=== PATIENT | male | born 1975 ===

== ENCOUNTER 2019-07-28 10:45 | Outpatient (CLI) | payer OTHER, SELFPAY ==
[2019-07-28 10:58] LABS: Basophils Absolute Auto 0.02 K/mm3 (0.00-0.10); Basophils Percent Auto 0.4 % (0.0-1.0); Hematocrit 45.9 % (40.0-54.0); Hemoglobin 16.1 g/dL (14.0-18.0); Immature Granulocyte Absolute 0.01 K/mm3 (0.00-0.00); Immature Granulocyte Percent A 0.2 % (0.0-0.0); Immature Platelet Fraction Pct 2.7 % (1.0-7.0); Lymphocytes Absolute Auto 0.57 K/mm3 (1.10-4.50); Lymphocytes Percent Auto 11.9 % (18.0-42.0); Mean Corpuscular HGB Conc 35.1 g/dL (32.0-36.0); Mean Corpuscular Hemoglobin 31.6 pg (27.0-31.0); Mean Platelet Volume 10.1 fl (8.7-11.0); Monocytes Absolute Auto 0.34 K/mm3 (0.10-0.90); Monocytes Percent Auto 7.1 % (2.0-11.0); Neutrophils Absolute Auto 3.8 K/mm3 (1.7-7.2); Neutrophils Percent Auto 80.4 % (50.0-70.0); Platelet Count Result 154 K/mm3 (150-420); Red Cell Distribution Width 11.8 % (11.6-14.4); White Blood Count 4.8 K/mm3 (4.8-10.8)
[2019-07-28 11:56] LABS: Alanine Aminotransferase 178 U/L (16-63); Albumin Level 3.9 g/dL (3.4-5.0); Alkaline Phosphatase 109 U/L (46-116); Anion Gap 11.8 mmol/L (7-16); Aspartate Amino Transferase 128 U/L (15-37); Bilirubin,Total 0.6 mg/dL (0.00-1.00); Blood Urea Nitrogen 8 mg/dL (7-18); Calcium 8.7 mg/dL (8.5-10.1); Carbon Dioxide 31 mmol/L (21-32); Chloride 98 mmol/L (98-108); Estimated Glomerular Filt Rate > 60; Glucose 110 mg/dL (70-99); Osmolality Calculated 283 mOsm/kg (285-295); Potassium 3.8 mmol/L (3.5-5.1); Sodium 137 mmol/L (136-145); Total Protein 7.3 g/dL (6.4-8.2)
== END 2019-07-28 10:46 | disposition home or self-care (01) ==
PROVIDERS: PCP Nurse Practitioner Family; Visit Provider Nurse Practitioner Family
DX: E86.0 Dehydration (principal); R73.09 Other abnormal glucose
CPT/HCPCS: 36415; 80053; 85025; 85055

== ENCOUNTER 2019-07-29 08:10 | Outpatient (CLI) | payer OTHER, SELFPAY ==
--- NOTE | ~2019-07-29 | US_ITS ---
US right upper quadrant INDICATION: Abnormal level of serum enzymes. PROCEDURE: Realtime right upper abdominal ultrasound. COMPARISON: No prior studies for comparison. FINDINGS: The pancreas is normal without focal mass or pancreatic ductal dilation. Liver echotexture is normal without focal mass or intrahepatic biliary dilatation. There is normal directional flow i n the portal vein. The gallbladder is normal without stones, gallbladder wall thickening or pericholecystic fluid. Comm on bile duct measures 4.1 mm. No sonographic Araujo's sign. IMPRESSION: 1: Normal limited abdominal ultrasound. Reviewed, dictated and finalized at location A.
[2019-07-29 09:58] LABS: Alanine Aminotransferase 226 U/L (16-63); Albumin Level 3.6 g/dL (3.4-5.0); Alkaline Phosphatase 120 U/L (46-116); Aspartate Amino Transferase 163 U/L (15-37); Bilirubin Direct 0.3 mg/dL (0-0.2); Bilirubin,Total 0.7 mg/dL (0.00-1.00); Ferritin 626 ng/mL (26-388)
[2019-07-31 17:21] LABS: EBV Nuclear Ab Antibody <18.00 U/mL (<18.00); EBV Nuclear Ab Interpretation Recent; EBV Virus Capsid Ag IgM Ab <36.00 U/mL (<36.00)
[2019-08-01 02:34] LABS: Hepatitis A Antibody IgM Nonreactive; Hepatitis B Core Antibody Nonreactive (Nonreactive); Hepatitis B Surface Antigen Nonreactive (Nonreactive); Hepatitis C Signal to Cutoff 0.01 ratio (<1.00); Hepatitis C Virus Antibody Nonreactive (Nonreactive)
[2019-08-02 22:07] LABS: Transferrin 220 mg/dL (188-341)
== END 2019-07-29 08:11 | disposition home or self-care (01) ==
LOC: CHSIMG 08:11
PROVIDERS: PCP Nurse Practitioner Family; Visit Provider Nurse Practitioner Family
DX: R74.8 Abnormal levels of other serum enzymes (principal)
CPT/HCPCS: 36415; 76705; 80074; 80076; 82728; 84466; 86664; 86665

== ENCOUNTER 2023-09-17 09:47 | Outpatient (CLI) | payer OTHER, SELFPAY ==
--- NOTE | ~2023-09-17 | XR_ITS ---
3 VIEWS LUMBAR SPINE Ordering provider: Jean Ewing APRN History: . LT side low back/sciatic pain X 1 week . Comparison: October 08, 2009 FINDINGS: VERTEBRAL BODIES: No visible fracture or subluxation. DISK SPACES: Normal. SOFT TISSUES: Normal. IMPRESSION: No acute osseous abnormality lumbar spine. Reviewed, dictated and finalized at location A.
[2023-09-17 10:24] LABS: Basophils Absolute Auto 0.03 K/mm3 (0.00-0.10); Basophils Percent Auto 0.4 % (0.0-1.0); Eosinophils Absolute Auto 0.12 K/mm3 (0.02-0.50); Eosinophils Percent Auto 1.7 % (1.0-6.0); Hemoglobin 16.4 g/dL (14.0-18.0); Immature Granulocyte Absolute 0.03 K/mm3 (0.00-0.00); Immature Granulocyte Percent A 0.4 % (0.0-0.0); Lymphocytes Absolute Auto 1.32 K/mm3 (1.10-4.50); Lymphocytes Percent Auto 18.9 % (18.0-42.0); Mean Corpuscular HGB Conc 33.5 g/dL (32-36); Mean Corpuscular Hemoglobin 30.7 pg (27.0-31.0); Mean Corpuscular Volume 91.8 fL (78.0-102.0); Mean Platelet Volume 9.9 fl (8.7-11.0); Monocytes Absolute Auto 0.55 K/mm3 (0.10-0.90); Monocytes Percent Auto 7.9 % (2.0-11.0); Neutrophils Absolute Auto 4.95 K/mm3 (1.70-7.20); Neutrophils Percent Auto 70.7 % (50.0-70.0); Platelet Count Result 262 K/mm3 (150-420); Red Blood Count 5.34 M/mm3 (4.70-6.10)
[2023-09-17 10:39] LABS: Hemoglobin A1C 5.4 % (<5.7)
[2023-09-17 11:23] LABS: Alanine Aminotransferase 36 U/L (16-63); Albumin Level 4.1 g/dL (3.4-5.0); Alkaline Phosphatase 60 U/L (46-116); Anion Gap 10 mmol/L (4-12); Aspartate Amino Transferase 18 U/L (15-37); Bilirubin,Total 0.3 mg/dL (0.00-1.00); Blood Urea Nitrogen 16 mg/dL (7-18); Carbon Dioxide 27 mmol/L (21-32); Chloride 103 mmol/L (98-108); Cholesterol 242 mg/dL (0-200); Estimated Glomerular Filt Rate > 60; Glucose 91 mg/dL (70-99); HDL Direct 43 mg/dL (40-60); LDL Cholesterol Calculated 158 mg/dL (<130); Osmolality Calculated 291 mOsm/kg (285-295); Potassium 3.9 mmol/L (3.5-5.1); Sodium 140 mmol/L (136-145); Total Protein 7.4 g/dL (6.4-8.2); Triglycerides 203 mg/dL (0-150)
[2023-09-17 11:29] LABS: Thyroid Stimulating Hormone Reflex 2.52 u/IU/mL (0.36-3.74)
== END 2023-09-17 09:48 | disposition home or self-care (01) ==
LOC: CHSLAB 09:51
PROVIDERS: PCP Nurse Practitioner Family; Visit Provider Nurse Practitioner Family
DX: Z00.00 Encounter for general adult medical examination without abnormal findings (principal); M54.42 Lumbago with sciatica, left side
CPT/HCPCS: 36415; 72100; 80053; 80061; 83036; 84443; 85025

== ENCOUNTER 2024-01-24 22:57 | Emergency (ER) | payer OTHER, SELFPAY ==
--- NOTE | ~2024-01-24 | XR_ITS ---
3 VIEWS LUMBAR SPINE Ordering provider: Ulises Jama MD History: . LEFT SIDE LOWER BACK PAIN. . Comparison: None. FINDINGS: VERTEBRAL BODIES: No visible fracture or subluxation. Severe bending of the coccyx. DISK SPACES: Normal. SOFT TISSUES: Normal. IMPRESSION: No acute osseous abnormality lumbar spine. Reviewed, dictated and finalized at location A. WAY SWITCHMAN
[2024-01-24 23:01] VITALS: BP 120/103; PULSE 99; RESP 18; TEMP 36.3; O2SAT 98
--- NOTE | 2024-01-24 23:03 | ED.BACK ---
HPI - Back Pain/Injury General Chief Complaint: Back Pain/Injury Stated Complaint: back pain Time Seen by Provider: 01/24/24 23:02 Source: patient Mode of arrival: wheelchair Limitations: no limitations History of Present Illness HPI Narrative: Patient is a 48-year-old male with left lower back pain after having 2 events over the last 2 days. Patient initially pulled his back while working on his car and then further slipped on ice a day ago. He is having pain in the same left lower back area. He is having spasms. He is having difficulty walking due to the spasms and pain. No shooting pains down below the knee however. MD elicited complaint: back pain, back injury and fall Pertinent past history: recent trauma Onset (ago): day(s) (3) Timing: constant Severity: severe Pain scale (0-10): 9 Quality: sharp, tingling and spasming Location: lumbar spine Radiation: groin ( Left side) and left upper leg Exacerbating factors: movement and walking Relieving factors: immobilization Context: other ( patient has had 2 injuries to his lower back over the past few days and is here for further evaluation) Associated symptoms: difficulty walking ( due to pain) and other ( no saddle anesthesia or urinary or bowel movement changes) Treatments prior to arrival: NSAIDS Work related injury: No Related Data Allergies Allergy/AdvReac Type Severity Reaction Status Date / Time diphenhydramine [Benadryl] Allergy Intermediate unknown Verified 09/17/23 09:18 DIPHENHYDRAMINE HCL Allergy Mild HIVES Uncoded 09/17/23 09:18 Review of Systems Review of Systems: All systems reviewed & are unremarkable except as noted in HPI and below Constitutional: Constitutional: Reports no additional constitutional complaints Eyes: Eyes: Reports no additional eye complaints ENT: Reports system reviewed and no additional complaints, except as documented Cardiovascular: Cardiovascular: Reports no additional cardiovascular complaints Respiratory: Respiratory: Reports no additional respiratory complaints Gastrointestinal: Gastrointestinal: Reports no additional gastrointestinal complaints Genitourinary: Genitourinary: Reports no additional male genitourinary complaints Musculoskeletal: Musculoskeletal: Reports no additional musculoskeletal complaints Integumentary/Breasts: Skin/Breast: Reports system reviewed and no additional complaints, except as docu Neurologic: Reports system reviewed and no additional complaints, except as documented Psychiatric: Psychiatric: Reports no additional psychiatric complaints Endocrine: Endocrine: Reports no additional endocrine complaints Hematologic/Lymphatic: Hematologic/Lymphatic: Reports no additional hematologic/lymphatic complaints Allergic/Immunologic: Allergic/Immunologic: Reports no additional allergic/immunologic complaints [facility] Past Medical History Medical History Asthma Dehydration Dental caries Elevated liver enzymes Nicotine dependence in remission Positive depression screening Sciatica associated with disorder of lumbar spine Family History Family History Mother Family history of type 2 diabetes mellitus Social History Social History Smoking status: Former smoker Tobacco type: e-cigarettes/vaping Alcohol intake: current Alcohol use details: social Substance use: never Substance use type: does not use Gender identity (if verbalized by the patient): Male Spiritual care concerns: No Exam Const: General: healthy appearing Nutritional Appearance: well nourished Orientation/consciousness: patient oriented x3 Limitations: no limitations HENMT: Head: normal to inspection Ears: external ears normal Face/Nose/Sinus: Normal external nose present Eyes: Conjunctivae: conjunctivae normal Pupils: Equal, round and reactive pupils present EOM: EOMs intact bilaterally Neck: Neck: normal visual inspection Chest: Chest palpation & inspection: normal inspection of the chest Resp: Effort & Inspection: normal respiratory effort and not labored Auscultation: clear to auscultation bilaterally Cardio: Rate: regular rate Rhythm: regular rhythm Heart sounds: no murmurs GI: Inspection: non-distended GI Palp: Yes Soft to palpation and No Tenderness to palpation present (GI) Auscultation: normal bowel sounds : General: Yes bladder normal to palpation Back/Spine/Pelvis: Back: no CVA tenderness Skin: General skin exam: normal color Rashes: no rashes Wounds: no wounds Neuro: General: patient oriented x3, moves all extremities, no meningeal signs, no focal motor deficits and CN's II-XI intact bilaterally Cranial nerves: Yes Nystagmus not present Speech: normal speech Gait exam (Neuro): gait abnormal Other: difficulty walking secondary to left lower back pain and some pain up to the left upper thigh Extrem: General: normal to inspection and no clubbing, cyanosis or edema Other: left lower extremity did not developed shooting pains below the knee on a straight leg test for sciatica Psych: Mental Status: mental status grossly normal Affect: normal affect Attitude: cooperative Course Vital Signs Vital signs: Vital Signs Temperature 36.3 C L 01/24/24 23:01 Pulse Rate 99 01/24/24 23:01 Respiratory Rate 18 01/24/24 23:01 Blood Pressure 120/103 H 01/24/24 23:01 Pulse Oximetry 98 01/24/24 23:01 Oxygen Delivery Room Air 01/24/24 23:01 Temperature 36.3 C L 01/24/24 23:01 Pulse Rate 85 01/25/24 00:01 Respiratory Rate 18 01/25/24 00:01 Blood Pressure 130/85 01/25/24 00:01 Pulse Oximetry 98 01/25/24 00:01 Oxygen Delivery Room Air 01/25/24 00:01 MDM - Back Pain/Injury MDM Narrative Medical decision making narrative: patient is a 48-year-old male with left lower back pain and some nerve involvement here for pain relief and further evaluation. We will get an x-ray of the lower back as well as pain management at this time. Imaging Data Attestation: I personally reviewed and interpreted this imaging study as follows: Radiologist's impression: Lumbar x-ray was negative for acute process Discharge Plan Discharge Clinical Impression: Muscle spasm Lumbago Qualifiers: Chronicity: acute Back pain laterality: left Sciatica presence: without sciatica Qualified Code(s): M54.50 - Low back pain, unspecified Patient Disposition: Home, Self-Care Condition: Improved Instructions: Acute Low Back Pain (ED) Prescriptions: New orphenadrine citrate 100 mg tablet extended release 100 mg PO BID PRN (Reason: muscle spasm) Qty: 20 0RF hydrocodone-acetaminophen 10-325 mg tablet 1 tablet PO Q8H PRN (Reason: pain) Qty: 10 0RF Rx Instructions: 1/2-1 tab per dose methylprednisolone [Medrol (Jim)] 4 mg tablets,dose pack See Rx Instructions .ROUTE .COMPLEX Qty: 21 0RF Rx Instructions: orally per package directions Follow-up/Referrals: Jean Ewing APRN [Primary Care Provider] - Time of Disposition: 00:42
[2024-01-24] MEDS: predniSONE 20 MG TABLET 40 MG PO (23:19)
[2024-01-24] MEDS: KETOROLAC (*BKC) 60 MG/2 ML VIAL IM (23:23)
[2024-01-24] MEDS: ORPHENADRINE CITRATE 30 MG/ML 2 ML VIAL 60 MG IM (23:24)
[2024-01-25 00:01] VITALS: BP 130/85; PULSE 85; RESP 18; O2SAT 98
[2024-01-25] MEDS: oxyCODONE/ACETAMINOPHEN (*CRX) 5-325 MG TABLET 1 TABLET PO (00:42)
[2024-01-25 00:58] VITALS: BP 125/85; PULSE 88; RESP 18; TEMP 36.6; O2SAT 98
== END 2024-01-25 00:58 | disposition home or self-care (01) ==
PROVIDERS: Emergency Provider Emergency Medicine; PCP Nurse Practitioner Family
DX: M62.830 Muscle spasm of back (principal); M54.50 Low back pain, unspecified; Z87.891 Personal history of nicotine dependence
CPT/HCPCS: 72100; 96372; 99284; A9270; J1885; J2360; J7512

== ENCOUNTER 2024-03-14 12:21 | Outpatient (CLI) | payer OTHER, SELFPAY ==
--- OUTSIDE RECORDS SUMMARY | 2024-03-14 12:24 | XMS_ITS | Clinical Summary ---
Author Organization [facility] Address [address] [place] [address] Phone Care Team Providers Care Acid Changer Name Role Phone Unavailable Primary Care Provider Unavailabl e Social History Tobacco Use Types Packs/Day Years Used Date Smoking Tobacco: Never Assessed Sex and Gender Information Value Date Recorded Sex Assigned at Not on file Legal Sex Male 10:45 AM CDT Gender Identity Not on file Sexual Orientation Not on file Plan of Treatment Not on file
--- OUTSIDE RECORDS SUMMARY | 2024-03-14 12:24 | XMS_ITS | Encounter Summary ---
Author Organization [facility] Address [address] [place] [address] Phone Care Team Providers Care Sales Planning Analyst Name Role Phone Unavailable Primary Care Provider Unavailabl e Encounter Details Date Type Department Care Team (Late st Contact Info) Description 08/12/2019 [facility] [address] [place] [address] Arnaud Correa MD [address] [place] [address] Social History Tobacco Use Types Packs/Day Years Used Date Smoking Tobacco: Never Assessed Sex and Gender Information Value Date Recorded Sex Assigned at Not on file Legal Sex Male 10:45 AM CDT Gender Identity Not on file Sexual Orientation Not on file documented as of this encounter Miscellaneous Notes * Telephone Encounter - Gracia Garcia - 08/12/2019 12:07 PM CDT I spoke to the patient regarding scheduling a new patient consult with Dr. Correa. The patient wants to reschedule at a later date due to his work schedule. He states he will contact our office. I reached out to his referring provider Mariely Vines to inform them of the patient's decision. His referral is in the accordion by MERISSA kowalski. documented in this encounter Plan of Treatment Not on file documented as of this encounter Visit Diagnoses Not on filedocumented in this encounter
--- OUTSIDE RECORDS SUMMARY | 2024-03-14 12:24 | XMS_ITS | Clinical Summary ---
Author Organization [facility] Address [address] [place] [address]. [place], [place] [id number] [place] [address] Care Team Providers Care Development Manager Name Role Phone Unavailable Primary Care Provider Unavailabl e Social History Tobacco Use Types Packs/Day Years Used Date Smoking Tobacco: Never Assessed Sex and Gender Information Value Date Recorded Sex Assigned at Not on file Legal Sex Male 8:17 PM CDT Gender Identity Not on file Sexual Orientation Not on file Plan of Treatment Health Maintenance Due Date Last Done Comments Colorectal Cancer Screening Colonoscopy (10 Years) 1977 Annual Physical 1980 Hepatitis C 07/21/1995 DTaP, Tdap and Td Vaccines ( 1 - Tdap) 1996 Hepatitis B Vaccines (1 of 3 - 19+ 3-dose series) 1996 COVID-19 Vaccine (2023-2 5 season) 2023 Influenza Adult (#1) 2023 Meningococcal B Vaccine Aged Out No l onger eligible based on patient's age to complete this topic Meningococcal Vaccine Aged Out No madelyn camden eligible based on patient's age to complete this topic Pneumococcal Vaccine: Pediat rics (0 to 5 Years) and At-Risk Patients (6 to 64 Years) Aged Out No longer eligible b ased on patient's age to complete this topic RSV Immunizations Under 20 Months Aged Out No longer eligible based on patient's age to complete this topic
[2024-03-14 13:07] LABS: Alanine Aminotransferase 31 U/L (16-63); Albumin Level 4.1 g/dL (3.4-5.0); Alkaline Phosphatase 59 U/L (46-116); Anion Gap 5 mmol/L (4-12); Aspartate Amino Transferase 15 U/L (15-37); Bilirubin,Total 0.3 mg/dL (0.00-1.00); Blood Urea Nitrogen 16 mg/dL (7-18); Calcium 9.2 mg/dL (8.5-10.1); Carbon Dioxide 33 mmol/L (21-32); Chloride 106 mmol/L (98-108); Cholesterol 258 mg/dL (0-200); Estimated Glomerular Filt Rate > 60; Glucose 104 mg/dL (70-99); HDL Direct 42 mg/dL (40-60); LDL Cholesterol Calculated 185 mg/dL (<130); Osmolality Calculated 299 mOsm/kg (285-295); Potassium 4.2 mmol/L (3.5-5.1); Sodium 144 mmol/L (136-145); Triglycerides 153 mg/dL (0-150)
== END 2024-03-14 12:22 | disposition home or self-care (01) ==
LOC: CHSLAB 12:22
PROVIDERS: PCP Nurse Practitioner Family; Visit Provider Nurse Practitioner Family
DX: E78.5 Hyperlipidemia, unspecified (principal)
CPT/HCPCS: 36415; 80053; 80061

== ENCOUNTER 2024-07-23 11:14 | Outpatient (RCR) | payer OTHER, SELFPAY ==
--- NOTE | 2024-08-14 10:40 | OPREHPOC ---
Outpatient Therapy Plan of Care This is a Multidisciplinary Plan of Care that may contain components documented by all disciplines (PT, OT, and ST.) PT Problem 1 PT Problem #1 Knowledge Deficit PT Goal 1 Goal / Goal Update The patient will be independent in a home exercise program. Progress Met PT Problem 2 PT Problem #2 Pain PT Goal 1 Goal / Goal Update The patient will report no greater than 2/10 low back pain with dressing and ambulation. Target Visit 12 Progress Met PT Problem 3 PT Problem #3 Impaired Functional Mobility PT Goal 1 Goal / Goal Update The patient will demonstrate 40% or less self perceived disability per the Back Index questionnaire. -not met The patient will be able to lift 30# from floor to waist with good body mechanics and 2/10 or less low back pain. 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 Target Visit 12 Progress Met
--- NOTE | 2024-08-14 10:40 | PTOPPROG ---
Assessment and note entered by Ellen Mittal, PT Evaluation Information Assessment Status Progress Diagnosis L sciatica Other ICD-10 Condition Codes ( M54.42, R29.898 PT) Onset 07/14/24 Subjective Information Pt reports his back pain is nearly gone and now he 's just sore. He is aware he has 2 more visits in his plan of care and is agreeable to finishing the POC and potentially discharging at last visit. Assessment PT Clinical Summary Mr. Cordon has attended 10 skilled PT visits addressing low back pain with radicular symptoms. Since beginning therapy his pain severity has reduced and he has made good improvements in his core/back and LE strength. He does still have some difficulty with prolonged sitting/standing/ walking and lifting and will benefit from continued skilled PT to continue progressing toward goals to be able to perform daily functional and recreational tasks with less pain. Plan of Care Interventions Electrical Stimulation,Hot Pack/Cold Pack,Manual Therapy,Mechanical Traction,Neuro Re-education, Patient/Caregiver Education,Therapeutic Activities ,Therapeutic Exercise PT Services Indicated Yes Treatment Frequency and Continue per original POC Duration These treatments will address the objective and functional deficits as defined above. The patient will be advanced safely and appropriately in order for the patient to progress towards his/her prior level of function. Additional exercises will be introduced and as well as a comprehensive home exercise program upon discharge, if needed, ?to ensure carryover of functional gains achieved in the clinic. This treatment plan has been reviewed and agreement upon by the patient.
--- NOTE | 2024-08-19 10:54 | PTOPDC ---
Assessment and note entered by Daniella Hurst, PT Evaluation Information Assessment Status Discharge Diagnosis L sciatica Other ICD-10 Condition Codes ( M54.42, R29.898 PT) Onset 07/14/24 Subjective Information Milan Cordon reports his low back pain has improved overall but he feels his progress has plateaued. He has to move around a lot when sitting, stop frequently with driving, and feels limited with walking distance. He notes the excruciating pain has resolved and he no longer has pain in his leg. He notes pain is 3/10 or less now. He is able to dress without difficulty. He reports he is stretching on his own here and there. Reported Pain Level Pain Score 1: Self Report Pain Score 2: Self Report Assessment PT Clinical Summary Milan Cordon has attended 12 skilled PT visits addressing low back pain with radicular symptoms. He is reporting overall improvements with no leg pain noted anymore. He does still have back pain on the left lower side that will get to 3/10 or less. He notes limitations with sitting, driving, and walking still. He has been able to get dressed without pain and has been performing yard maintenance work as well. He objectively demonstrates improved lumbar AROM, improved gait, less tenderness, and improved strength. He does still have pain with left straight leg raise testing and pain elicited with left hip extension and abduction strength testing. He plans to follow up with his physician. He will be discharged to an independent [facility]. Plan of Care PT Services Indicated No
== END 2024-08-19 14:58 | disposition home or self-care (01) ==
LOC: CHSPT 11:14
PROVIDERS: PCP Family Medicine; Visit Provider Nurse Practitioner Family
DX: M54.42 Lumbago with sciatica, left side (principal); R29.898 Other symptoms and signs involving the musculoskeletal system
CPT/HCPCS: 97014; 97110; 97112; 97150; 97161; 97750; G0283

== ENCOUNTER 2024-07-31 11:14 | Outpatient (CLI) | payer OTHER, SELFPAY ==
--- OUTSIDE RECORDS SUMMARY | 2024-07-31 11:17 | XMS_ITS | Clinical Summary ---
Author Organization [facility] Address [address] [place] [address] Phone Care Team Providers Care Warehouser Name Role Phone Unavailable Primary Care Provider [...]
--- OUTSIDE RECORDS SUMMARY | 2024-07-31 11:17 | XMS_ITS | Encounter Summary ---
Author Organization [facility] Address [address] [place] [address] Phone Care Team Providers Care Range Feeder Name Role Phone Unavailable Primary Care Provider Unavailabl e Encounter Details Date Type Department Care Team (Late st Contact Info) Description 08/12/2019 [facility] [address] [place] [address] Arnaud Correa MD [address] [place] [address] Social History Tobacco Use Types [...]
[2024-07-31 12:19] LABS: Cholesterol 267 mg/dL (0-200); HDL Direct 50 mg/dL; LDL Cholesterol Calculated 189 mg/dL (<130); Triglycerides 141 mg/dL (<150)
== END 2024-07-31 11:15 | disposition home or self-care (01) ==
LOC: CHSLAB 11:15
PROVIDERS: PCP Nurse Practitioner Family; Visit Provider Nurse Practitioner Family
DX: E78.5 Hyperlipidemia, unspecified (principal)
CPT/HCPCS: 36415; 80061